=== PATIENT | female | born 2000 | race Caucasian/White ===

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

== ENCOUNTER 2023-02-26 18:02 | Emergency (ER) | payer OTHER ==
[~2023-02-26] VITALS: Ht 154.9 cm; Wt 63.5 kg
[~2023-02-26 18:02] MED LIST changes: +'zithromax250 MG PO; +AMOX-CLAV 875-1 EACH PO
[2023-02-26] MEDS ORDERED: CEPHALEXIN500 M1 PO (18:31)
[2023-02-26] MEDS ORDERED: LICE TREATMENT T (18:31)
== END 2023-02-26 18:51 | disposition home or self-care (01) ==
LOC: ED 18:02
DX: B86 Scabies (principal); L03.90 Cellulitis, unspecified; F17.200 Nicotine dependence, unspecified, uncomplicated; Z79.2 Long term (current) use of antibiotics; Z98.890 Other specified postprocedural states

== ENCOUNTER 2023-06-27 12:20 | Emergency (ER) | payer OTHER ==
[~2023-06-27] VITALS: Ht 154.9 cm; Wt 65.8 kg
[~2023-06-27 12:20] MED LIST changes: +CEPHALEXIN500 M1 PO; +LICE TREATMENT T
[2023-06-27 13:55] LABS: BASO # 0.1 10*3/uL (0.0-0.1); BASO % 0.5 % (0.0-1.0); EOS % 0.3 % (1.0-4.0); HEMATOCRIT 44.9 % (37.0-47.0); LYMPH # 1.4 10*3/uL (1.3-4.4); MEAN CELL VOLUME 86.5 fl (81.0-99.0); MEAN CORPUSCULAR HGB 29.3 pg (27.0-31.0); MEAN CORPUSCULAR HGB CONC 33.9 g/dl (33.0-37.0); MEAN PLATELET VOLUME 10.2 fl (9.6-12.3); MONO # 0.8 10*3/uL (0.1-1.0); MONO % 5.7 % (3.0-9.0); NEUT # 10.8 10*3/uL (2.3-7.9); PLATELET COUNT AUTOMATED 277 10*3/uL (130-400); RED BLOOD COUNT 5.19 10*6/uL (4.10-5.10); RED CELL DISTRI WIDTH 12.8 % (0-14.5); WHITE BLOOD COUNT 13.1 10*3/uL (4.8-10.8)
[2023-06-27 14:19] LABS: ALKALINE PHOSPHATASE 79 U/L (46-116); BUN 12 mg/dl (9-23); CHLORIDE 105 mmol/L (98-107); POTASSIUM 3.3 mmol/L (3.4-5.1); SGPT/ALT 18 U/L (5-49); TOTAL PROTEIN 7.8 gm/dL (6.0-8.0)
== END 2023-06-27 14:53 | disposition home or self-care (01) ==
LOC: ED 12:20
PROVIDERS: Nurse Practitioner Family
DX: R25.2 Cramp and spasm (principal); E87.6 Hypokalemia; F17.200 Nicotine dependence, unspecified, uncomplicated; Z98.890 Other specified postprocedural states